=== PATIENT | female | born 1980 | race Caucasian/White ===

== ENCOUNTER 2016-10-17 08:38 | Emergency (ER) | payer MEDICAID | END 2016-10-17 09:20 | disposition home or self-care (01) | LOC: D.ER 08:38 | DX: F41.9 Anxiety disorder, unspecified (principal); E03.9 Hypothyroidism, unspecified; F43.10 Post-traumatic stress disorder, unspecified; M26.609 Unspecified temporomandibular joint disorder, unspecified side; F17.200 Nicotine dependence, unspecified, uncomplicated ==

== ENCOUNTER 2017-09-10 15:23 | Emergency (ER) | payer MEDICAID | END 2017-09-10 18:34 | disposition home or self-care (01) | LOC: D.ER 15:23 | DX: J02.9 Acute pharyngitis, unspecified (principal); F17.200 Nicotine dependence, unspecified, uncomplicated; E03.9 Hypothyroidism, unspecified; R50.9 Fever, unspecified ==